=== PATIENT | female | born 1930 | race Caucasian/White ===

== ENCOUNTER 2017-11-26 12:42 | Emergency (ER) | payer OTHER ==
[~2017-11-26] VITALS: Ht 170.2 cm; Wt 54.4 kg
[2017-11-26 13:33] LABS: Basophils # (auto) 0 uL; Eosinophils # (auto) 0 uL; Hemoglobin 13.2 g/dL (12.2-16.2); Mean Corpuscular Hgb Conc. 32.8 g/dL (32.0-36.0); Neutrophils # (auto) 7.7 uL; Nucleated Red Blood Cells % 0.1 %; White Blood Cell 9.4 10^3/uL (4.4-10.8)
[2017-11-26 13:35] LABS: Basophils % (auto) 0.2 % (0.0-2.0); Hematocrit 40.2 % (36.0-46.0); Lymphocytes % (auto) 10.8 % (10.0-50.0); Mean Corpuscular Hemoglobin 26.6 pg (28.0-32.0); Monocytes # (auto) 0.7 uL; Platelet Count (auto) 183 10^3/uL (140-450); Red Blood Cells 4.96 10^6/uL (4.0-5.20); Red Cell Distribution Width 15.9 % (11.8-14.3)
[2017-11-26 13:56] LABS: Alanine Aminotransferase 35 U/L (13-56); Albumin 3.7 g/dL (3.4-5.0); Alkaline Phosphatase 71 U/L (45-117); Anion Gap 10 (5-15); Aspartate Aminotransferase 24 U/L (15-37); BUN/Creatinine Ratio 26.6; Blood Urea Nitrogen 41 mg/dL (7-18); Calcium 9.2 mg/dL (8.5-10.1); Carbon Dioxide 30 mmol/L (21-32); Chloride 96 mmol/L (98-107); Creatine Kinase IFCC 61 U/L (26-192); GFR African American 41 mL/min; GFR Non-African American 34 mL/min; Glucose 130 mg/dL (74-106); Magnesium 2.7 mg/dL (1.6-2.6); Sodium 136 mmol/L (136-145)
[2017-11-26 13:59] LABS: Potassium 2.8 mmol/L (3.5-5.1)
[2017-11-26] MEDS ORDERED: POTASSIUM CHL 20 Meq TABLET PO ONE (14:30)
[2017-11-26 16:29] LABS: Urine Bacteria NONE SEEN /hpf (None Seen); Urine Blood 2+ /uL (Negative); Urine Specific Gravity 1.012 (1.001-1.035); Urine WBC 7 /hpf (0 - 5)
[2017-11-26] MEDS ORDERED: NITROFURANTOIN (MONO) 100 mg CAP PO ONE (16:45)
[2017-11-26] MEDS ORDERED: ONDANSETRON ODT 4 MG TAB PO ONE (16:45)
[2017-11-26 17:02] VITALS: BP 152/90
== END 2017-11-26 16:44 | disposition home or self-care (01) ==
LOC: EDBD 12:42 → ER 12:42
DX: M54.5 Low back pain (principal); M54.2 Cervicalgia; M25.512 Pain in left shoulder; M25.511 Pain in right shoulder; J44.9 Chronic obstructive pulmonary disease, unspecified; I48.91 Unspecified atrial fibrillation; E78.5 Hyperlipidemia, unspecified; I67.2 Cerebral atherosclerosis; I10 Essential (primary) hypertension; Z88.6 Allergy status to analgesic agent; Z96.89 Presence of other specified functional implants; W19.XXXA Unspecified fall, initial encounter; Y93.89 Activity, other specified; Y92.092 Bedroom in other non-institutional residence as the place of occurrence of the external cause; Y99.8 Other external cause status
CPT/HCPCS: 36415; 70450; 71045; 72110; 72125; 80053; 81001; 82550; 83735; 84484; 85025; 93005; 99285; Q0162

== ENCOUNTER 2017-11-27 08:15 | Emergency (ER) | payer OTHER ==
[~2017-11-27] VITALS: Ht 170.2 cm; Wt 64.0 kg
[2017-11-27] MEDS ORDERED: ONDANSETRON HCL 4 MG/2 ML VIAL IV ONE (09:15)
[2017-11-27 14:20] LABS: Prothrombin Time 69.3 sec (9.27-12.13)
[2017-11-27 14:31] LABS: INR 7.24 (0.9-1.15)
[2017-11-27 15:10] VITALS: BP 137/87
== END 2017-11-27 15:22 | disposition short-term general hospital (02) ==
LOC: EDBD 08:15 → ER 08:18
DX: G89.4 Chronic pain syndrome (principal); I48.91 Unspecified atrial fibrillation; J44.9 Chronic obstructive pulmonary disease, unspecified; E78.5 Hyperlipidemia, unspecified; I10 Essential (primary) hypertension; Z88.8 Allergy status to other drugs, medicaments and biological substances; Z90.49 Acquired absence of other specified parts of digestive tract; Z95.0 Presence of cardiac pacemaker
CPT/HCPCS: 36415; 72070; 72131; 85610; 93005; 96374; 99285; J2405; J7030

== ENCOUNTER 2018-03-14 11:36 | Emergency (ER) | payer OTHER ==
[~2018-03-14] VITALS: Ht 157.5 cm; Wt 63.5 kg
[2018-03-14] MEDS: ALBUTEROL SULF 2.5 MG/0.5ML(0.5%) NEB SOLN HHN ONE (12:50)
[2018-03-14] MEDS: IPRATROPIUM BROM 0.5 MG/2.5ML INH SOL HHN ONE (12:50)
[2018-03-14 12:51] LABS: Eosinophils # (auto) 0 uL; Eosinophils % (auto) 0.1 % (0.0-7.0); Hematocrit 33.3 % (36.0-46.0); Lymphocytes % (auto) 9.1 % (10.0-50.0); Monocytes # (auto) 1.6 uL; Red Blood Cells 4.09 10^6/uL (4.0-5.20)
[2018-03-14 12:52] LABS: Basophils # (auto) 0.2 uL; Basophils % (auto) 0.9 % (0.0-2.0); Hemoglobin 10.4 g/dL (12.2-16.2); Lymphocytes # (auto) 1.6 uL; Mean Corpuscular Hemoglobin 25.3 pg (28.0-32.0); Mean Corpuscular Hgb Conc. 31.1 g/dL (32.0-36.0); Mean Corpuscular Volume 81.4 fL (80.0-100.0); Monocytes % (auto) 8.9 % (0.0-12.0); Neutrophils # (auto) 14.5 uL; Nucleated Red Blood Cells % 0.4 %; Platelet Count (auto) 216 10^3/uL (140-450); Red Cell Distribution Width 19.6 % (11.8-14.3); White Blood Cell 17.9 10^3/uL (4.4-10.8)
[2018-03-14] MEDS: methylPREDNISolone SOD SUCC 125 MG/2 ML VL IV ONE (13:04)
[2018-03-14 13:08] LABS: Alanine Aminotransferase 18 U/L (13-56); Albumin 3.3 g/dL (3.4-5.0); Anion Gap 7 (5-15); Aspartate Aminotransferase 13 U/L (15-37); BUN/Creatinine Ratio 16.7; Blood Urea Nitrogen 21 mg/dL (7-18); Calcium 9.3 mg/dL (8.5-10.1); Carbon Dioxide 28 mmol/L (21-32); Chloride 105 mmol/L (98-107); GFR African American 52 mL/min; GFR Non-African American 43 mL/min; Glucose 113 mg/dL (74-106); Magnesium 2.1 mg/dL (1.6-2.6); Potassium 3.7 mmol/L (3.5-5.1); Sodium 140 mmol/L (136-145)
[2018-03-14 13:13] LABS: Alkaline Phosphatase 101 U/L (45-117); Bilirubin, Total 0.8 mg/dL (0.2-1.0); Total Protein 6.8 g/dL (6.4-8.2)
[2018-03-14] MEDS: FUROSEMIDE 40 MG/4 ML VIAL IV ONE (13:21)
[2018-03-14] MEDS: LEVOFLOXACIN 500MG 100 ML IV ONE (13:23)
[2018-03-14 13:26] LABS: Urine Bacteria NONE SEEN /hpf (None Seen); Urine Blood Negative /uL (Negative); Urine Hyaline Cast FEW /lpf (0 - 2); Urine Specific Gravity 1.015 (1.001-1.035); Urine WBC 5 /hpf (0 - 5)
[2018-03-14 14:22] LABS: INR 1.96 (0.9-1.15); Partial Thromboplastin Time 26.2 sec (23.78-33.04); Prothrombin Time 20.2 sec (9.27-12.13)
[2018-03-14 17:57] VITALS: BP 144/77
== END 2018-03-14 18:13 | disposition short-term general hospital (02) ==
LOC: EDBD 11:36 → ER 11:37
DX: J90 Pleural effusion, not elsewhere classified (principal); R06.03 Acute respiratory distress; D72.829 Elevated white blood cell count, unspecified; I48.91 Unspecified atrial fibrillation; J44.9 Chronic obstructive pulmonary disease, unspecified; E78.5 Hyperlipidemia, unspecified; I10 Essential (primary) hypertension; Z96.89 Presence of other specified functional implants
CPT/HCPCS: 36415; 71045; 80053; 81001; 83605; 83735; 83880; 84484; 85025; 85610; 85730; 87040; 93005; 94644; 94761; 96365; 96375; 99285; J1940; J1956; J2930; J7611; J7644

== ENCOUNTER 2018-03-24 13:54 | Emergency (ER) | payer OTHER ==
[~2018-03-24] VITALS: Ht 170.2 cm; Wt 59.0 kg
[2018-03-24] MEDS ORDERED: FUROSEMIDE 40 MG/4 ML VIAL IV ONE (14:15)
[2018-03-24] MEDS ORDERED: IPRATROPIUM BROM 0.5 MG/2.5ML INH SOL NEB ONE (14:15)
[2018-03-24] MEDS ORDERED: ALBUTEROL SULF 2.5 MG/0.5ML(0.5%) NEB SOLN NEB ONE (14:15)
[2018-03-24 14:43] LABS: Basophils # (auto) 0 uL; Eosinophils # (auto) 0 uL; Mean Corpuscular Hemoglobin 24.7 pg (28.0-32.0); Nucleated Red Blood Cells % 0.1 %; White Blood Cell 7.1 10^3/uL (4.4-10.8)
[2018-03-24 14:45] LABS: Basophils % (auto) 0.5 % (0.0-2.0); Eosinophils % (auto) 0.6 % (0.0-7.0); Hematocrit 33.3 % (36.0-46.0); Hemoglobin 10.2 g/dL (12.2-16.2); Lymphocytes # (auto) 1.5 uL; Lymphocytes % (auto) 20.6 % (10.0-50.0); Mean Corpuscular Hgb Conc. 30.7 g/dL (32.0-36.0); Mean Corpuscular Volume 80.5 fL (80.0-100.0); Monocytes # (auto) 0.6 uL; Neutrophils # (auto) 4.9 uL; Neutrophils % (auto) 69.3 % (37.0-80.0); Platelet Count (auto) 320 10^3/uL (140-450); Red Blood Cells 4.14 10^6/uL (4.0-5.20)
[2018-03-24 14:52] LABS: Red Cell Distribution Width 20.1 % (11.8-14.3)
[2018-03-24 14:57] LABS: Alanine Aminotransferase 16 U/L (13-56); Albumin 3.1 g/dL (3.4-5.0); Anion Gap 9 (5-15); Aspartate Aminotransferase 14 U/L (15-37); BUN/Creatinine Ratio 18.9; Blood Urea Nitrogen 20 mg/dL (7-18); Calcium 9.2 mg/dL (8.5-10.1); Carbon Dioxide 26 mmol/L (21-32); Chloride 103 mmol/L (98-107); GFR African American 63 mL/min; GFR Non-African American 52 mL/min; Glucose 100 mg/dL (74-106); Potassium 3.3 mmol/L (3.5-5.1); Sodium 138 mmol/L (136-145)
[2018-03-24 14:59] LABS: INR 1.57 (0.9-1.15); Prothrombin Time 16.4 sec (9.27-12.13)
[2018-03-24 15:00] LABS: Alkaline Phosphatase 84 U/L (45-117); Bilirubin, Total 0.9 mg/dL (0.2-1.0); Total Protein 6.9 g/dL (6.4-8.2)
[2018-03-24] MEDS ORDERED: diphenhdrAMINE HCL 50 MG/1 ML VL IV ONE (16:00)
[2018-03-24] MEDS ORDERED: POTA10TA51 PO (16:14)
[2018-03-24] MEDS ORDERED: DILT60TA27 PO (16:14)
[2018-03-24] MEDS ORDERED: TIOT17SP IN (16:14)
[2018-03-24] MEDS ORDERED: WARF2.5T PO (16:14)
[2018-03-24] MEDS ORDERED: TEMA15CA91 PO (16:14)
[2018-03-24] MEDS ORDERED: CHOL20007 PO (16:14)
[2018-03-24] MEDS ORDERED: CYAN500S8 SL (16:14)
[2018-03-24] MEDS ORDERED: FLUT250M2 INH (16:14)
[2018-03-24] MEDS ORDERED: METO-462 PO (16:14)
[2018-03-24] MEDS ORDERED: ATO40T PO (16:14)
[2018-03-24] MEDS ORDERED: FURO20TA PO (16:14)
[2018-03-24] MEDS ORDERED: ALBUAER3 IN (16:15)
[2018-03-24 17:59] VITALS: BP 156/79
== END 2018-03-24 18:19 | disposition short-term general hospital (02) ==
LOC: ER 13:54 → EDBD 13:54 → ER 18:19
DX: J18.9 Pneumonia, unspecified organism (principal); J44.9 Chronic obstructive pulmonary disease, unspecified; I48.91 Unspecified atrial fibrillation; I11.0 Hypertensive heart disease with heart failure; E78.5 Hyperlipidemia, unspecified; I50.9 Heart failure, unspecified; Z90.49 Acquired absence of other specified parts of digestive tract; Z95.0 Presence of cardiac pacemaker
CPT/HCPCS: 36415; 71045; 80053; 83605; 83880; 84484; 85025; 85610; 85730; 87040; 94640; 96374; 96375; 99285; J1200; J1940; J7611; J7644